=== PATIENT | female | born 1955 | race Caucasian/White ===

== ENCOUNTER 2018-09-26 11:28 | Emergency (ER) | payer BC ==
[~2018-09-26] VITALS: Ht 172.7 cm; Wt 78.0 kg
[2018-09-26] MEDS ORDERED: CITALOPRAM10 MG PO (11:46)
[2018-09-26] MEDS ORDERED: DEMEROL PO (14:06)
[2018-09-26 14:29] VITALS: BP 141/76
== END 2018-09-26 14:30 | disposition home or self-care (01) | DRG 863 ==
LOC: ED 11:28
DX: T81.41XA Infection following a procedure, superficial incisional surgical site, initial encounter (principal); F17.210 Nicotine dependence, cigarettes, uncomplicated; Y83.8 Other surgical procedures as the cause of abnormal reaction of the patient, or of later complication, without mention of misadventure at the time of the procedure